=== PATIENT | male | born 1990 | race Caucasian/White ===

== ENCOUNTER 2022-11-04 18:36 | Emergency (ER) | payer OTHER, BC, SELFPAY ==
[2022-11-04 18:41] VITALS: BP 180/139; PULSE 98; RESP 18; TEMP 36.3; O2SAT 99; BMI 39.1
--- NOTE | 2022-11-04 18:52 | ED.NURSE ---
poison control called, spoke with Caleb. rinse eyes for 15 minutes, may need slit lamp exam with fluroseine
--- NOTE | 2022-11-04 18:53 | ED_ITS ---
HPI - General Adult General Chief complaint: Ear/Nose/Throat Problem Stated complaint: Ammonia in Eyes Time Seen by Provider: 11/04/22 18:45 History of Present Illness HPI narrative: This 32-year-old male comes in with his co-worker as both of them or working with a chemical called [employer] which contains ammonia and naphtha. They both come in for the same reason. Each had chemical exposure to eyes. The patient did irrigate his eyes with water prior to arrival. There is no report of neurologic deficit or other symptoms. There is no sign of skin irritation. Related Data Home Medications Medication Instructions Recorded Confirmed No Known Home Medications 09/11/22 09/11/22 Allergies Allergy/AdvReac Type Severity Reaction Status Date / Time No Known Allergies Allergy Unknown Verified 09/11/22 16:01 Review of Systems Status of ROS: Reports: 10 or more systems reviewed and unremarkable except as noted in History and below Narrative: Constitutional: Well-developed, well-nourished, no acute distress. HEENT: Eye irritation and redness. Neck: Normal range of motion. Nontender. Supple. Heart: Regular. No murmurs. Normal rate. Intact distal pulses. Lungs: Clear to auscultation. No chest discomfort. No wheezes, rhonchi, or rales. Abdomen: Normal bowel sounds. Nontender. No rebound tenderness. Genitalia: Deferred. Back: No midline tenderness. Normal range of motion. Extremities: Normal range of motion. No injury. Skin: Intact. No rash. Warm. No erythema or pallor. Neurologic: No altered sensation. No weakness. Alert and oriented. Psychiatric: No suicidality. No anxiety or depression. No insomnia. Nursing notes and vitals signs are reviewed. [facility] Social History Smoking Status: Current every day smoker How often do you have a drink containing alcohol: 4 or more times a week How many standard drinks containing alcohol do you have on a typical day: 1 or 2 How often do you have six or more drinks on one occasion: Never AUDIT-C Alcohol total score: 4 Non-prescribed substance use: denies use Exam Narrative: Exam Narrative: Constitutional: Well-developed, well-nourished, no acute distress. HEENT: Eyes are injected bilaterally. No purulent discharge. No sign foreign object. Neck: Normal range of motion. Nontender. Supple. Heart: Intact distal pulses. Lungs: No chest discomfort. No wheezes, rhonchi, or rales. Abdomen: Nontender. Back: Normal range of motion. Extremities: Normal range of motion. No injury. Skin: Intact. No rash. Warm. No erythema or pallor. Neurologic: No altered sensation. No weakness. Alert and oriented. Psychiatric: No suicidality. No anxiety or depression. No insomnia. Nursing notes and vitals signs are reviewed. Const: Vital Signs, click to edit/add: Vital Signs - 24 hr 11/04/22 18:41 11/04/22 19:29 Temperature 97.3 F L Pulse Rate [Pulse Oximeter] 98 102 H Respiratory Rate 18 18 Blood Pressure [Ri t Upper Arm] 180/139 H 154/96 H Pulse Oximetry 99 99 Oxygen Delivery Me thod Room Air Course Vital Signs Vital signs: Initial Vital Signs Temperature 97.3 F L 11/04/22 18:41 Temperature Source Temporal Artery Scan 11/04/22 18:41 Pulse Rate 98 11/04/22 18:41 Respiratory Rate 18 11/04/22 18:41 Blood Pressure 180/139 H 11/04/22 18:41 Blood Pressure Mean 152 H 11/04/22 18:41 Pulse Oximetry 99 11/04/22 18:41 Vital Signs Temperature 97.3 F L 11/04/22 18:41 Pulse Rate 98 11/04/22 18:41 Respiratory Rate 18 11/04/22 18:41 Blood Pressure 180/139 H 11/04/22 18:41 Pulse Oximetry 99 11/04/22 18:41 Temperature 97.3 F L 11/04/22 18:41 Pulse Rate 102 H 11/04/22 19:29 Respiratory Rate 18 11/04/22 19:29 Blood Pressure 154/96 H 11/04/22 19:29 Pulse Oximetry 99 11/04/22 19:29 Oxygen Delivery Method Room Air 11/04/22 19:29 Medical Decision Making MDM Narrative Medical decision making narrative: This patient comes in chemical exposure to both eyes. Poison Control is contacted and recommended irrigating for 15 minutes with water. I did examine the patient's eyes under magnification. There is no sign of foreign object or significant injury to either eye. The patient states that he is feeling better. He did receive a prescription for flurbiprofen ophthalmic solution. Discharge Plan Discharge Clinical Impression: Chemical exposure of eye Patient Disposition: Home, Self-Care Condition: Improved Additional Instructions: Use medication as needed and directed. Follow up with MD or return if worsening. Prescriptions: No Action No Known Home Medications Follow Up/Referrals: Juan Russell MD [Primary Care Provider] - Stand Alone Forms: That{img} Info Instructions
[2022-11-04 19:29] VITALS: BP 154/96; PULSE 102; RESP 18; O2SAT 99
[2022-11-04] MEDS: FLURBIPROFEN 0.03% 1 ML EYE-BOTH (19:49)
== END 2022-11-04 19:55 | disposition home or self-care (01) ==
PROVIDERS: Emergency Provider Emergency Medicine Emergency Medical Services; PCP Family Medicine
DX: H10.213 Acute toxic conjunctivitis, bilateral (principal); T59.894A Toxic effect of other specified gases, fumes and vapors, undetermined, initial encounter
CPT/HCPCS: 99283; 99284; A9270

== ENCOUNTER 2024-03-25 13:56 | Outpatient (CLI) | payer BC, SELFPAY | END 2024-03-25 13:57 | disposition home or self-care (01) | PROVIDERS: PCP Family Medicine; Visit Provider Nurse Practitioner Family | DX: I10 Essential (primary) hypertension (principal); R53.83 Other fatigue; R55 Syncope and collapse; Z13.6 Encounter for screening for cardiovascular disorders | CPT/HCPCS: 80053; 80061; 83735; 84443; 85025 ==